=== PATIENT | female | born 2000 | race Caucasian/White ===

== ENCOUNTER 2022-10-07 18:00 | Inpatient (IN) | payer OTHER ==
[2022-10-07] MEDS ORDERED: Acetaminophen 500 MG TAB PO PRN (20:45)
[2022-10-07] MEDS ORDERED: Carboprost 250 MCG/ML AMP IM PRN (20:45)
[2022-10-07] MEDS ORDERED: Ibuprofen 800 MG TAB PO PRN (20:45)
[2022-10-07] MEDS ORDERED: Ondansetron PF 4 MG/2 ML Vial IVP PRN (20:45)
[2022-10-07] MEDS ORDERED: Methylergonovine 0.2 MG/ML VIAL IM PRN (20:45)
[2022-10-07] MEDS ORDERED: HYDROcodone/Acetaminophen 5/325 mg Tablet PO PRN (20:45)
[2022-10-07] MEDS ORDERED: Misoprostol 200 MCG TAB PR PRN (20:45)
[2022-10-07] MEDS ORDERED: Tranexamic Acid 1,000 MG in Sodium Chloride 0.9% 250 ML 250 ML IVPB PRN (20:45)
[2022-10-07] MEDS ORDERED: Butorphanol Tartrate 1 MG/ML VIAL SLOW IVP PRN (20:45)
[2022-10-07] MEDS ORDERED: Lactated Ringer's 1,000 ML IV SCH (20:45)
[2022-10-07] MEDS ORDERED: Promethazine HCl 25 MG/ML VIAL IM PRN (20:45)
[2022-10-07] MEDS ORDERED: Lidocaine 1% (PF) 30 ML VIAL SC PRN (20:45)
[2022-10-07] MEDS ORDERED: hydrALAZINE 20 MG/ML VIAL SLOW IVP PRN (20:45)
[2022-10-07] MEDS ORDERED: Diphenoxylate HCl/Atropine Tablet PO PRN (20:45)
[2022-10-07 20:46] VITALS: BMI 35.1
[2022-10-07] MEDS ORDERED: NS w/ Oxytocin 30 units 500 ML IV SCH ×2 (21:00)
[2022-10-07 21:38] LABS: Hemoglobin 8.7 g/dL (12.0-15.5); Mean Corpuscular HGB CONC 32.1 g/dL (32.0-36.0); Mean Corpuscular Hemoglobin 25.4 pg (27.0-33.0); Mean Corpuscular Volume 79.2 fl (81.6-98.3); Mean Platelet Volume 12.7 fl (7.4-10.4); Platelet Count 178 10x3/uL (150-450); RBC Distribution Width 15.9 % (11.5-14.5); Red Blood Cell (RBC) Count 3.42 10x6/uL (3.90-5.03)
[2022-10-07 22:26] LABS: Syphilis Antibody Nonreactive (Nonreactive); Syphilis Antibody Index 0.15 S/CO (<1.00 Non-Reactive)
[2022-10-07 22:27] LABS: HBSAg Index 0.23 S/CO (0-0.99); Hep B Surf Ag Non-Reactive S/CO (NonReactive)
[2022-10-08] MEDS ORDERED: Fentanyl 2 mcg/Bup 0.1% Cadd 100 ML ONE (11:19)
[2022-10-08] MEDS ORDERED: Moisturizing Cream (Eucerin) 113 GM JAR TOP PRN (13:32)
[2022-10-08] MEDS ORDERED: Lactated Ringer's 500 ML IV PRN (13:32)
[2022-10-08] MEDS ORDERED: Acetaminophen 325 MG TAB PO PRN (13:32)
[2022-10-08] MEDS ORDERED: Ondansetron PF 4 MG/2 ML Vial IVP PRN ×2 (13:32→21:22)
[2022-10-08] MEDS ORDERED: Naloxone HCl 0.4 mg/ml Vial IVP PRN ×2 (13:32)
[2022-10-08] MEDS ORDERED: diphenhydrAMINE 50 MG/ML VIAL IVP PRN (13:32)
[2022-10-08] MEDS ORDERED: Promethazine HCl 25 MG/ML VIAL IM PRN (13:32)
[2022-10-08] MEDS ORDERED: ePHEDrine Sulfate 50 MG/10 ML VIAL SLOW IVP PRN (13:32)
[2022-10-08] MEDS ORDERED: Communication Order-Pharmacy FS SCH (13:45)
[2022-10-08] MEDS ORDERED: Fentanyl 2 mcg/Bupivacaine 0.1% Cassette 100 ML EPIDURAL SCH (13:45)
[2022-10-08] MEDS ORDERED: NS w/ Oxytocin 30 units 500 ML ONE (19:36)
[2022-10-08] MEDS ORDERED: Misoprostol 200 MCG TAB ONE (19:36)
[2022-10-08] MEDS ORDERED: Carboprost 250 MCG/ML AMP ONE (19:37)
[2022-10-08] MEDS ORDERED: Methylergonovine 0.2 MG/ML VIAL ONE (19:37)
[2022-10-08] MEDS ORDERED: Milk Of Magnesia 30 ML UDCUP PO PRN (21:22)
[2022-10-08] MEDS ORDERED: hydrALAZINE 20 MG/ML VIAL SLOW IVP PRN (21:22)
[2022-10-08] MEDS ORDERED: Boostrix 0.5 ML (Tdap) VIAL (>/=7 yrs of age) IM ONE (21:22)
[2022-10-08] MEDS ORDERED: Bisacodyl 10 MG SUPP PR PRN (21:22)
[2022-10-08] MEDS ORDERED: Lanolin Ointment 7 GM TUBE TOP PRN (21:22)
[2022-10-08] MEDS ORDERED: diphenhydrAMINE 25 MG CAP PO PRN (21:22)
[2022-10-08] MEDS ORDERED: HYDROcodone/Acetaminophen 5/325 mg Tablet PO PRN (21:22)
[2022-10-08] MEDS ORDERED: Lactated Ringer's 1,000 ML IV SCH (21:30)
[2022-10-08] MEDS ORDERED: NS w/ Oxytocin 30 units 500 ML IV SCH (21:30)
[2022-10-08] MEDS ORDERED: Docusate 100 MG CAP PO SCH (21:30)
[2022-10-08 22:08] LABS: SARS-CoV-2 NAA Rapid Test Not Detected (NotDetected)
[2022-10-08] MEDS: Misoprostol 100 MCG TAB VAG SCH ×2 (22:47→22:48)
[2022-10-08] MEDS: Ibuprofen 800 MG TAB PO SCH (23:00)
[2022-10-09] MEDS: Ibuprofen 800 MG TAB PO SCH ×3 (05:40→21:05)
[2022-10-09] MEDS: Prenatal Vitamin 1 TAB PO SCH (08:54)
[2022-10-09] MEDS: Ferrous Sulfate 325 MG TAB PO SCH ×2 (08:54→18:03)
[2022-10-09] MEDS: Docusate 100 MG CAP PO SCH ×2 (08:54→21:05)
[2022-10-09] MEDS ORDERED: Benzocaine-Menthol 82.5 ML CAN TOP PRN (10:43)
[2022-10-10] MEDS: Ibuprofen 800 MG TAB PO SCH (05:07)
[2022-10-10 07:54] VITALS: BP 113/69; TEMP 98.5
[2022-10-10] MEDS: Prenatal Vitamin 1 TAB PO SCH (08:57)
[2022-10-10] MEDS: Docusate 100 MG CAP PO SCH (08:57)
[2022-10-10] MEDS: Ferrous Sulfate 325 MG TAB PO SCH (08:57)
== END 2022-10-10 11:00 | disposition home or self-care (01) | DRG 807 ==
LOC: CSHLD 20:11 → CSHPP 10-08 22:10
PROVIDERS: ADMIT Family Medicine; ATTEND Family Medicine
PROC: 10E0XZZ Delivery of Products of Conception, External Approach (ICD-10-PCS; principal; 2022-10-08)
PROC: 3E033VJ Introduction of Other Hormone into Peripheral Vein, Percutaneous Approach (ICD-10-PCS; 2022-10-08)
PROC: 10907ZC Drainage of Amniotic Fluid, Therapeutic from Products of Conception, Via Natural or Artificial Opening (ICD-10-PCS; 2022-10-08)
PROC: 0W8NXZZ Division of Female Perineum, External Approach (ICD-10-PCS; 2022-10-08)
PROC: 3E0334Z Introduction of Serum, Toxoid and Vaccine into Peripheral Vein, Percutaneous Approach (ICD-10-PCS; 2022-10-08)
DX: O24.420 Gestational diabetes mellitus in childbirth, diet controlled (principal); Z37.0 Single live birth; O76 Abnormality in fetal heart rate and rhythm complicating labor and delivery; O32.8XX0 Maternal care for other malpresentation of fetus, not applicable or unspecified; Z20.822 Contact with and (suspected) exposure to COVID-19; Z3A.39 39 weeks gestation of pregnancy; O26.893 Other specified pregnancy related conditions, third trimester; Z67.21 Type B blood, Rh negative; O69.81X0 Labor and delivery complicated by cord around neck, without compression, not applicable or unspecified
CPT/HCPCS: 36415; 36416; 51702; 85027; 85461; 86780; 86850; 86900; 86901; 87340; 90384; 96372; J2210; J2405; J2590; U0002